=== PATIENT | male | born 1945 | race Caucasian/White ===

== ENCOUNTER → 2017-11-18 | Outpatient (CLI) | payer MEDICARE ==
[2017-11-18 17:03] LABS: BASOPHILS ABSOLUTE AUTO 0.03 K/mm3 (0.00-0.23); BASOPHILS PERCENT AUTO 0 % (0-2); EOSINOPHILS PERCENT AUTO 0 % (0-6); Hematocrit 36.3 % (37.0-53.0); Hemoglobin 11.9 g/dL (13.5-17.5); Mean Corpuscular HGB Conc 32.8 g/dL (31.5-36.5); Mean Corpuscular Volume 82 fL (80-100); Mean Platelet Volume 10.6 fL (9.1-12.4); Platelet Count 188 K/mm3 (150-400); RDW Coefficient Variation 15.1 % (11.7-14.2); Red Blood Cell Count 4.41 M/mm3 (4.30-5.90); White Blood Cell Count 16.33 K/mm3 (4.00-11.30)
[2017-11-18 17:07] LABS: IMMATURE GRAN ABSOLUTE AUTO 0.11 K/mm3 (0.00-0.10); IMMATURE GRAN PERCENT AUTO 1 % (0-1); LYMPHOCYTES PERCENT AUTO 22 % (21-46); MONOCYTES PERCENT AUTO 7 % (4-13); NEUTROPHILS ABSOLUTE AUTO 11.49 K/mm3 (1.96-9.15); NEUTROPHILS PERCENT AUTO 70 % (41-73)
[2017-11-18 17:21] LABS: Alanine Aminotransfer (ALT/SGP 22 U/L (12-78); Albumin, Blood 3.5 g/dL (3.4-5.0); Albumin/Globulin Ratio 0.8 (0.8-1.8); Alk Phos 83 U/L (50-136); Anion Gap 8 mmol/L (6-16); Aspartate Aminotrans (AST/SGOT 20 U/L (12-37); Bilirubin, Total 0.6 mg/dL (0.1-1.0); Blood Urea Nitrogen 24 mg/dL (8-24); Bun/Creatinine Ratio 26.5 (12.0-20.0); CO2, Blood 25 mmol/L (21-32); Chloride, Blood 105 mmol/L (98-108); Creatinine, Blood 0.91 mg/dL (0.60-1.20); Globulin, Blood 4.3 g/dL (2.2-4.0); Glomerular Filtration Rate >60 (60-); Glucose, Blood 151 mg/dL (70-99); Potassium, Blood 3.8 mmol/L (3.5-5.5); Sodium, Blood 138 mmol/L (136-145); Total Protein, Blood 7.8 g/dL (6.4-8.2)
== END ==
LOC: LAB SHORT 16:57
PROVIDERS: Physician Assistant
DX: R53.83 Other fatigue (principal)
CPT/HCPCS: 80053; 85025; 87086

== ENCOUNTER → 2021-04-05 | Outpatient (CLI) | payer MEDICARE ==
[~2021-04-05] MED LIST: ASPI81CH PO; FERROUS SULFATE PO; Multivitamin1 EAC1 PO
== END | disposition home or self-care (01) ==
LOC: LAB SHORT 08:06
DX: D04.4 Carcinoma in situ of skin of scalp and neck (principal)
CPT/HCPCS: 88305

== ENCOUNTER → 2022-05-29 | Outpatient (CLI) | payer MEDICARE | LOC: PLD 08:14 → LAB 08:14 → LAB SHORT 08:14 | DX: D04.22 Carcinoma in situ of skin of left ear and external auricular canal (principal) | CPT/HCPCS: 88305 ==

== ENCOUNTER → 2022-06-21 | Outpatient (CLI) | payer MEDICARE | END | disposition home or self-care (01) | LOC: LAB SHORT 08:21 → PLD 08:21 | DX: L81.4 Other melanin hyperpigmentation (principal) | CPT/HCPCS: 88305 ==

== ENCOUNTER 2022-07-05 21:35 | Emergency (ER) | payer MEDICARE ==
[~2022-07-05] VITALS: Ht 180.3 cm; Wt 77.1 kg
== END 2022-07-06 00:10 | disposition home or self-care (01) ==
LOC: ER 21:35
DX: S10.86XA Insect bite of other specified part of neck, initial encounter (principal); Z23 Encounter for immunization; Z79.899 Other long term (current) drug therapy; Z79.82 Long term (current) use of aspirin; Z87.891 Personal history of nicotine dependence; W57.XXXA Bitten or stung by nonvenomous insect and other nonvenomous arthropods, initial encounter
CPT/HCPCS: 90714; A9270

== ENCOUNTER 2025-06-02 11:07 | Inpatient (IN) | payer MEDICARE ==
[~2025-06-02] VITALS: Ht 180.3 cm; Wt 71.4 kg
[2025-06-02 11:51] LABS: Hematocrit 41.2 % (37.0-53.0); Hemoglobin 13.7 g/dL (13.5-17.5); Mean Corpuscular HGB Conc 33.3 g/dL (31.5-36.5); Mean Corpuscular Volume 87 fL (80-100); NRBC ABSOLUTE 0.00 K/mm3 (0.00-0.02); NRBC Auto 0.0 /100 WBC (0.0-0.2); Platelet Count 233 K/mm3 (150-400); RDW Coefficient Variation 14.0 % (11.7-14.2); RDW Standard Deviation 45.2 fL (35.1-46.3)
[2025-06-02 12:03] LABS: BAND PERCENT MAN 14 % (0-8); BASOPHILS ABSOLUTE MAN 0.00 K/mm3 (0.00-0.23); BASOPHILS PERCENT MAN 0 % (0-2); EOSINOPHILS ABSOLUTE MAN 0.00 K/mm3 (0.00-0.68); EOSINOPHILS PERCENT MAN 0 % (0-6); LYMPHOCYTES ABSOLUTE MAN 1.33 K/mm3 (0.84-5.20); LYMPHOCYTES PERCENT MAN 17 % (21-46); MONOCYTES ABSOLUTE MAN 0.15 K/mm3 (0.16-1.47); MONOCYTES PERCENT MAN 2 % (4-13); NEUTROPHILS ABSOLUTE MAN 6.35 K/mm3 (1.96-9.15); SEG NEUTROPHILS PERCENT MAN 67 % (41-73)
[2025-06-02 12:24] LABS: Alanine Aminotransfer (ALT/SGP 24.0 U/L (12-78); Albumin, Blood 2.7 g/dL (3.4-5.0); Albumin/Globulin Ratio 0.5 (0.8-1.8); Anion Gap 12.0 mmol/L (3-11); Aspartate Aminotrans (AST/SGOT 32.0 U/L (12-37); Bilirubin, Total 1.1 mg/dL (0.1-1.0); Blood Urea Nitrogen 44.0 mg/dL (8-24); CO2, Blood 24.0 mmol/L (21-32); Calcium, Blood 9.7 mg/dL (8.5-10.1); Chloride, Blood 102.0 mmol/L (98-108); Creatinine, Blood 1.2 mg/dL (0.60-1.20); Globulin, Blood 5.0 g/dL (2.2-4.0); Glucose, Blood 146.0 mg/dL (70-99); Potassium, Blood 4.0 mmol/L (3.5-5.5); Sodium, Blood 134.0 mmol/L (136-145); Total Protein, Blood 7.7 g/dL (6.4-8.2)
[2025-06-02] MEDS ORDERED: CefTRIAXone Sodium 1,000 MG in NS 100 ML IV ONE (12:30)
[2025-06-02 13:16] LABS: Influenza A, PCR NEGATIVE (NEGATIVE); Influenza B, PCR NEGATIVE (NEGATIVE); Resp Syncytial Virus, PCR NEGATIVE (NEGATIVE); SARS-Cov-2 (COVID-19) PCR, MMC NEGATIVE (NEGATIVE)
[2025-06-02] MEDS ORDERED: NS 1,000 ML IV SCH (14:30)
--- NOTE | 2025-06-02 15:41 | NUR ---
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 Pt. and spouse both welcmoe my visit. Facilitated a life review and considered matters of teofilo and belief. Rapport is established. Pt. displayed evidence of being engaged and aware and verbalized his expectation that he would be admitted overnight. Listen with empathy and interest and also seek to normalize the Pt. experience. Prayed with Pt. Pt. 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
[2025-06-02] MEDS ORDERED: FLU VACC TS2025(65UP)/MF59C/PF 45 MCG/0.5 ML SYRINGE IM SCH (15:50)
[2025-06-02] MEDS ORDERED: Magnesium Hydroxide Conc 10 ML UDC PO PRN (15:55)
[2025-06-02 16:37] VITALS: BP 136/74
--- NOTE | 2025-06-02 19:05 | NUR ---
SHIFT SUMMARY PT A&OX4. PT ADMITTED TO FLOOR AT 1630. PT ADMITTED DUE TO PNEUMONIA. PT REPORTS SOB W AMBULATION, AND SOME WEAKNESS, PT REPORTS NO CHEST PAIN, NO GENERALIZED PAIN, NO NAUSEA. PT REPORTS POOR APPETITE OVER THE LAST MONTH. VSS. PT ON 6L OF O2 VIA HIGH FLOW CANNULA W HUMIDIFIER. PT HAS CONT PULSE OX ON, SPO2 IS 93%. INCENTIVE SPIROMETER AT BEDSIDE. PT EDUCATED ON PROPER USE. PT PREFORMED USE OF SPIROMETER ADEQUATE. PT REPORTS LAST BM WAS LOOSE YESTERDAY. PT HAS NS KCL 20MEQ RUNNING AT 200ML/HR. MED REC COMPLETE, PT REPORTS ONLY TAKING A MULTIVITAMIN. ADMISSION COMPLETE. PT IN BED, BED IN LOWEST POSITION, LOCKED, CALL LIGHT IN REACH. AT BEDSIDE ON ADMMISSION. PT ORIENTED TO UNIT/CALL LIGHT/FALL PRECAUTION, SECOND RN SKIN CHECK PREFORMED WITH OTHER RN DARSHAN ON FLOOR.
[2025-06-02 19:25] VITALS: BP 103/42
[2025-06-03 03:45] VITALS: BP 111/65
[2025-06-03 06:28] LABS: Alanine Aminotransfer (ALT/SGP 28.0 U/L (12-78); Albumin, Blood 2.1 g/dL (3.4-5.0); Albumin/Globulin Ratio 0.5 (0.8-1.8); Anion Gap 8.0 mmol/L (3-11); Aspartate Aminotrans (AST/SGOT 37.0 U/L (12-37); Bilirubin, Total 0.6 mg/dL (0.1-1.0); Blood Urea Nitrogen 37.0 mg/dL (8-24); CO2, Blood 24.0 mmol/L (21-32); Calcium, Blood 8.6 mg/dL (8.5-10.1); Chloride, Blood 112.0 mmol/L (98-108); Creatinine, Blood 0.87 mg/dL (0.60-1.20); Globulin, Blood 4.2 g/dL (2.2-4.0); Glucose, Blood 101.0 mg/dL (70-99); Potassium, Blood 4.1 mmol/L (3.5-5.5); Sodium, Blood 140.0 mmol/L (136-145); Total Protein, Blood 6.3 g/dL (6.4-8.2)
--- NOTE | 2025-06-03 06:33 | NUR ---
SHIFT SUMMARY: PT IS A&OX4. ABLE TO MAKE NEEDS KNOWN. DENIES SOB WHILE SITTING UP AT REST. REPORTS SOME INCREASED SOB WITH EXCERTION. HE IS CURRENTLY ON 6 LPM O2 AND O2 SATS REMAIN BETWEEN 92-100%. HE HAS TOLERATED HIS FLUID INFUSION WELL. NO OTHER CHANGES OVERNIGHT. CURRENTLY PT IS SLEEPIN IN HIS BED AT LOWEST POSITION WITH CALL LIGHT WITHIN REACH.
--- NOTE | 2025-06-03 06:35 | NUR ---
RECEIVED CALL FROM LAB THAT CBC NEEDS TO BE REDRAWN. PT INFORMED.
[2025-06-03 07:00] LABS: Hematocrit 35.4 % (37.0-53.0); Hemoglobin 11.7 g/dL (13.5-17.5); Mean Corpuscular HGB Conc 33.1 g/dL (31.5-36.5); Mean Corpuscular Volume 88 fL (80-100); NRBC ABSOLUTE 0.00 K/mm3 (0.00-0.02); NRBC Auto 0.0 /100 WBC (0.0-0.2); Platelet Count 218 K/mm3 (150-400); RDW Coefficient Variation 14.0 % (11.7-14.2); RDW Standard Deviation 45.5 fL (35.1-46.3)
[2025-06-03 07:27] VITALS: BP 132/74
[2025-06-03 07:48] LABS: BAND PERCENT MAN 6 % (0-8); BASOPHILS ABSOLUTE MAN 0.00 K/mm3 (0.00-0.23); BASOPHILS PERCENT MAN 0 % (0-2); EOSINOPHILS ABSOLUTE MAN 0.00 K/mm3 (0.00-0.68); EOSINOPHILS PERCENT MAN 0 % (0-6); LYMPHOCYTES ABSOLUTE MAN 1.49 K/mm3 (0.84-5.20); LYMPHOCYTES PERCENT MAN 23 % (21-46); MONOCYTES ABSOLUTE MAN 0.13 K/mm3 (0.16-1.47); MONOCYTES PERCENT MAN 2 % (4-13); NEUTROPHILS ABSOLUTE MAN 4.88 K/mm3 (1.96-9.15); SEG NEUTROPHILS PERCENT MAN 69 % (41-73)
[2025-06-03] MEDS ORDERED: Enoxaparin 40 MG/0.4 ML SYR SC SCH (09:00)
--- NOTE | 2025-06-03 09:10 | NUR ---
Pt. is awake in bed and welcomes my visit. Pt. is pleasant and i inthe middle of breakfast. Facilitated an update and listened with interest ad empathy. Pt. verbalized that he had not yet seen a doctor but was hoping to be discharged home today. Normalized the Pt. experience. Pt. displayed evidence of understanding and agreement. Prayed with the Pt. Pt. verbalized gratitude for the spiritual care visit.
[2025-06-03] MEDS ORDERED: NS 250 ML IV PRN (11:15)
[2025-06-03] MEDS ORDERED: CefTRIAXone Sodium 1,000 MG in NS 100 ML IV SCH (12:00)
[2025-06-03 15:20] VITALS: BP 139/67
--- NOTE | 2025-06-03 17:30 | NUR ---
SHIFT SUMMARY PT AOX4, CALLS AND MAKES HIS NEEDS KNOWN. SBA TO THE BR. CURRENTLY ON 4L AND SATING >90%. NO ACUTE COMPLAINTS. NO EVENTS PER TELE. PT USING THE INCENTIVE SPIROMETER AT THE BS REGULARLY. PT REPOSITIONS SELF IN BED. CALL LIGHT WITHIN REACH, BED LOCKED AND IN THE LOWEST POSITION. WILL REPORT TO ONCOMING NURSE.
[2025-06-03 19:26] VITALS: BP 126/67
[2025-06-03] MEDS ORDERED: DEXTROMETHORPHAN/BENZOCAINE 1 EACH LOZENGE MT PRN (22:20)
--- NOTE | 2025-06-04 04:18 | NUR ---
SHIFT SUMMARY ADMITTED FOR PNEUMONIA. FULL CODE. IV ANTIB RX. HE WILL DC BACK HOME WHEN STABLE. HE LIVES WITH HIS . HE IS A&O X4, INDEPENDENT. REGULAR DIET. HE WAS ON 6 LPM O2, HE IS NOW ON 4 LPM O2. RA IS HIS BASELINE. HE COMPLAINS OF A COUGH THIS SHIFT. LOZENGES WERE ORDERED.
[2025-06-04 05:20] VITALS: BP 147/72
[2025-06-04 07:30] VITALS: BP 135/68
[2025-06-04] MEDS ORDERED: Lactobacil 2-S.Thermo-Bifido 1 1 Cap PO SCH (09:00)
[2025-06-04 13:14] LABS: Hematocrit 35.8 % (37.0-53.0); Hemoglobin 11.7 g/dL (13.5-17.5); Mean Corpuscular HGB Conc 32.7 g/dL (31.5-36.5); Mean Corpuscular Volume 88 fL (80-100); NRBC ABSOLUTE 0.00 K/mm3 (0.00-0.02); NRBC Auto 0.0 /100 WBC (0.0-0.2); Platelet Count 311 K/mm3 (150-400); RDW Coefficient Variation 14.0 % (11.7-14.2); RDW Standard Deviation 45.6 fL (35.1-46.3)
[2025-06-04 13:33] LABS: Alanine Aminotransfer (ALT/SGP 57.0 U/L (12-78); Albumin, Blood 2.1 g/dL (3.4-5.0); Albumin/Globulin Ratio 0.5 (0.8-1.8); Anion Gap 10.0 mmol/L (3-11); Aspartate Aminotrans (AST/SGOT 62.0 U/L (12-37); Bilirubin, Total 0.4 mg/dL (0.1-1.0); Blood Urea Nitrogen 25.0 mg/dL (8-24); CO2, Blood 23.0 mmol/L (21-32); Calcium, Blood 8.8 mg/dL (8.5-10.1); Chloride, Blood 110.0 mmol/L (98-108); Creatinine, Blood 0.79 mg/dL (0.60-1.20); Globulin, Blood 4.4 g/dL (2.2-4.0); Glucose, Blood 144.0 mg/dL (70-99); Potassium, Blood 3.9 mmol/L (3.5-5.5); Sodium, Blood 139.0 mmol/L (136-145); Total Protein, Blood 6.5 g/dL (6.4-8.2)
[2025-06-04 13:41] LABS: BAND PERCENT MAN 1 % (0-8); BASOPHILS ABSOLUTE MAN 0.00 K/mm3 (0.00-0.23); BASOPHILS PERCENT MAN 0 % (0-2); EOSINOPHILS ABSOLUTE MAN 0.00 K/mm3 (0.00-0.68); EOSINOPHILS PERCENT MAN 0 % (0-6); LYMPHOCYTES ABSOLUTE MAN 0.93 K/mm3 (0.84-5.20); LYMPHOCYTES PERCENT MAN 11 % (21-46); MONOCYTES ABSOLUTE MAN 0.17 K/mm3 (0.16-1.47); MONOCYTES PERCENT MAN 2 % (4-13); NEUTROPHILS ABSOLUTE MAN 7.42 K/mm3 (1.96-9.15); SEG NEUTROPHILS PERCENT MAN 86 % (41-73)
[2025-06-04 15:52] VITALS: BP 112/80
[2025-06-04] MEDS ORDERED: CEPACOL PO (17:03)
[2025-06-04] MEDS ORDERED: CEFP200 PO (17:04)
--- NOTE | 2025-06-04 17:17 | NUR ---
SHIFT SUMMARY PT AOX4, INDEPENDENT IN THE ROOM. 2L WITH AMBULATION, RA AT REST. WAS GOING TO DC TODAY BUT OXYGEN COULD NOT BE DELIVERED. PT AND FAMILY MADE AWARE AND AGREEABLE. ALSO MADE AWARE. REPOSITIONS SELF IN BED. CALL LIGHT WITHIN REACH, BED LOCKED AND IN THE LOWEST POSITION. WILL REPORT TO ONCOMING NURSE.
[2025-06-04 20:03] VITALS: BP 138/75
[2025-06-05 05:02] VITALS: BP 149/84
--- NOTE | 2025-06-05 05:38 | NUR ---
SHIFT SUMMARY PT ON ROOM AIR WHILE AWAKE, 2L APPLIED WHILE PT SLEEPING, AND ENCOURAGED PT TO USE THE OXYGEN WHEN UP AND AMBULATING IN ROOM. CONTINUOUS PULSE OX IN PLACE. ENCOURAGED PT TO USE IS AND C&DB. PT WITH MOIST BUT NONPRODUCTIVE COUGH. PT SLEPT INTERMITTENTLY DURING THE NIGHT.
[2025-06-05 07:12] VITALS: BP 151/87
[2025-06-05 12:36] LABS: Hematocrit 35.5 % (37.0-53.0); Hemoglobin 11.6 g/dL (13.5-17.5); Mean Corpuscular HGB Conc 32.7 g/dL (31.5-36.5); Mean Corpuscular Volume 89 fL (80-100); NRBC ABSOLUTE 0.00 K/mm3 (0.00-0.02); NRBC Auto 0.0 /100 WBC (0.0-0.2); Platelet Count 371 K/mm3 (150-400); RDW Coefficient Variation 13.8 % (11.7-14.2); RDW Standard Deviation 45.4 fL (35.1-46.3)
[2025-06-05 12:53] LABS: Alanine Aminotransfer (ALT/SGP 56.0 U/L (12-78); Albumin, Blood 2.2 g/dL (3.4-5.0); Albumin/Globulin Ratio 0.5 (0.8-1.8); Anion Gap 8.0 mmol/L (3-11); Aspartate Aminotrans (AST/SGOT 43.0 U/L (12-37); Bilirubin, Total 0.5 mg/dL (0.1-1.0); Blood Urea Nitrogen 18.0 mg/dL (8-24); CO2, Blood 27.0 mmol/L (21-32); Calcium, Blood 9.0 mg/dL (8.5-10.1); Chloride, Blood 108.0 mmol/L (98-108); Creatinine, Blood 0.7 mg/dL (0.60-1.20); Globulin, Blood 4.6 g/dL (2.2-4.0); Glucose, Blood 99.0 mg/dL (70-99); Potassium, Blood 3.9 mmol/L (3.5-5.5); Sodium, Blood 139.0 mmol/L (136-145); Total Protein, Blood 6.8 g/dL (6.4-8.2)
[2025-06-05 13:02] LABS: BASOPHILS ABSOLUTE MAN 0.00 K/mm3 (0.00-0.23); BASOPHILS PERCENT MAN 0 % (0-2); EOSINOPHILS ABSOLUTE MAN 0.16 K/mm3 (0.00-0.68); EOSINOPHILS PERCENT MAN 2 % (0-6); LYMPHOCYTES ABSOLUTE MAN 0.67 K/mm3 (0.84-5.20); LYMPHOCYTES PERCENT MAN 8 % (21-46); MONOCYTES ABSOLUTE MAN 0.50 K/mm3 (0.16-1.47); MONOCYTES PERCENT MAN 6 % (4-13); NEUTROPHILS ABSOLUTE MAN 7.08 K/mm3 (1.96-9.15); SEG NEUTROPHILS PERCENT MAN 84 % (41-73)
[2025-06-05 15:45] VITALS: BP 144/82
--- NOTE | 2025-06-05 17:59 | NUR ---
SHIFT SUMMARY: DISCHARGE DELAY- REPEAT HOME O2 EVAL DONE THIS AM & NEEDING AN INCREASE ON SUPPLEMENTAL O2, 2L TO 5L. A&Ox4, INDEPENDENT IN ROOM & CALLS WHEN NEEDED. XRAY REPEATED & NOW SHOWING PERSISTENT BILATERAL PNEUMONIA. CONT WITH IV ANTIBIOTICS. USING INCENTIVE SPIROMETER DURING THE DAY. CALL LIGHT IN REACH. BED AT LOWEST POSITION. WILL REPORT TO ONCOMING NURSE.
[2025-06-05 19:04] VITALS: BP 139/68
[2025-06-06 04:02] VITALS: BP 137/75
--- NOTE | 2025-06-06 05:08 | NUR ---
SHIFT SUMMARY O2 WEANED TO 4LNC AT START OF SHIFT WITH SATS MAINTAINING MID 90'S, ON CONTINUOUS PULSE OX. O2 INCREASED TO 5L THEN TO 6L WHILE PT SLEEPING FOR DESAT 85-86%. O2 SATS NOW LOW 90'S ON 6L HIGH FLOW NC. PT WITH INCREASE TO HIS MOIST COUGH- STILL UNABLE TO COUGH OUT SECRETIONS. USING IS WHILE AWAKE. PT INDEPENDENT IN ROOM TO BATHROOM, SOME DYSPNEA WITH ACTIVITY. PT SLEPT INTERMITTENTLY DURING THE NIGHT.
[2025-06-06 08:33] VITALS: BP 148/72
[2025-06-06 13:13] LABS: BASOPHILS ABSOLUTE AUTO 0.03 K/mm3 (0.00-0.23); BASOPHILS PERCENT AUTO 0 % (0-2); EOSINOPHILS ABSOLUTE AUTO 0.07 K/mm3 (0.00-0.68); EOSINOPHILS PERCENT AUTO 1 % (0-6); Hematocrit 35.6 % (37.0-53.0); Hemoglobin 12.0 g/dL (13.5-17.5); IMMATURE GRAN ABSOLUTE AUTO 0.21 K/mm3 (0.00-0.10); IMMATURE GRAN PERCENT AUTO 3 % (0-1); LYMPHOCYTES ABSOLUTE AUTO 1.26 K/mm3 (0.84-5.20); LYMPHOCYTES PERCENT AUTO 16 % (21-46); MONOCYTES ABSOLUTE AUTO 0.42 K/mm3 (0.16-1.47); MONOCYTES PERCENT AUTO 5 % (4-13); Mean Corpuscular HGB Conc 33.7 g/dL (31.5-36.5); Mean Corpuscular Volume 88 fL (80-100); NEUTROPHILS ABSOLUTE AUTO 6.14 K/mm3 (1.96-9.15); NEUTROPHILS PERCENT AUTO 75 % (41-73); NRBC ABSOLUTE 0.00 K/mm3 (0.00-0.02); NRBC Auto 0.0 /100 WBC (0.0-0.2); Platelet Count 439 K/mm3 (150-400); RDW Coefficient Variation 13.5 % (11.7-14.2); RDW Standard Deviation 43.9 fL (35.1-46.3)
[2025-06-06 13:35] LABS: Alanine Aminotransfer (ALT/SGP 51.0 U/L (12-78); Albumin, Blood 2.2 g/dL (3.4-5.0); Albumin/Globulin Ratio 0.5 (0.8-1.8); Anion Gap 10.0 mmol/L (3-11); Aspartate Aminotrans (AST/SGOT 33.0 U/L (12-37); Bilirubin, Total 0.6 mg/dL (0.1-1.0); Blood Urea Nitrogen 21.0 mg/dL (8-24); CO2, Blood 25.0 mmol/L (21-32); Calcium, Blood 8.7 mg/dL (8.5-10.1); Chloride, Blood 107.0 mmol/L (98-108); Creatinine, Blood 0.7 mg/dL (0.60-1.20); Globulin, Blood 4.6 g/dL (2.2-4.0); Glucose, Blood 131.0 mg/dL (70-99); Potassium, Blood 3.7 mmol/L (3.5-5.5); Sodium, Blood 138.0 mmol/L (136-145); Total Protein, Blood 6.8 g/dL (6.4-8.2)
[2025-06-06 15:45] VITALS: BP 147/70
--- NOTE | 2025-06-06 17:30 | NUR ---
SHIFT SUMMARY PT IS A/OX4. SBA. NO ACUTE CHANGES THROUGHOUT THIS SHIFT. ON 6L NC, SATS >90% ON CONT PULSE OX. IV ANTIBIOTICS GIVEN PER SEP. FAMILY AT BEDSIDE THIS AFTERNOON. PT IS PLEASANT AND COOPERATIVE WITH CARE AND CALLS APPROPRIATELY USING THE CALL LIGHT.
[2025-06-06 19:33] VITALS: BP 126/60
[2025-06-07 04:12] VITALS: BP 133/69
--- NOTE | 2025-06-07 06:13 | NUR ---
SHIFT SUMMARY PT WEANED TO 3L NC WITH SATS > 90%- CONTINUOUS PULSE OX IN PLACE. MOIST COUGH CONTINUES, PT ABLE TO COUGH UP SOME SECRETIONS. PT INDEPENDENT IN ROOM. SLEPT LONG INTERVALS THROUGH THE NIGHT.
[2025-06-07 08:40] VITALS: BP 140/81
--- NOTE | 2025-06-07 17:00 | NUR ---
PT DISCHARGED TO HOME. DISCHARGE INSTRUCTIONS AND PROVIDED ON AT TIME OF DISCHARGE. ALL VALAUBLES RETURNED AND SENT HOME WITH THE PT.
== END 2025-06-07 17:00 | disposition home or self-care (01) | DRG 194 ==
LOC: ER 11:07 → MEDS 14:30
PROVIDERS: Emergency Medicine; Internal Medicine; ADMIT Family Medicine
DX: J18.9 Pneumonia, unspecified organism (principal); C91.11 Chronic lymphocytic leukemia of B-cell type in remission; R19.7 Diarrhea, unspecified; Z87.891 Personal history of nicotine dependence; Z85.828 Personal history of other malignant neoplasm of skin; Z85.72 Personal history of non-Hodgkin lymphomas
CPT/HCPCS: 36415; 71046; 71260; 80053; 83605; 83880; 84145; 85025; 86141; 87040; 87081; 87637; 94761; 94762; 96365; 96367; 99285-25; A9270; J0456; J0696; J1650; J3480; J7030; J7050; Q9967